=== PATIENT | female | born 2000 | race Two or more races ===

== ENCOUNTER 2025-05-20 08:42 | Outpatient (AMB) | payer MEDICAID, SELFPAY ==
--- NOTE | 2025-05-20 08:47 | OBCLNT_ITS ---
Vital Signs 05/20/25 08:49 Height 1.57 m Height Method Stated Weight 62.596 kg Weight Measurement Method Standing Scale BMI 25.2 BP 121/80 Blood Pressure Source Automatic Cuff Blood Pressure Location Left Upper Arm Position Sitting Respiration 16 Pulse 89 Pulse Source Monitor Temp 97.8 F Temp Source Oral Pulse Oximetry (%) 96 Oxygen Delivery Method Room Air Allergies/Home Meds Allergies & Medications Allergies NKA Allergy (Unknown, Uncoded 05/20/25 08:52) Medication Reconciliation doxylamine 10 mg-pyridoxine (vit B6) 10 mg tablet,delayed release (Diclegis) 1 tab PO BID 30 days #60 tabs 05/20/25 [Rx] Intake Visit Data Collection New Patient or Established: New Patient (never been to [facility]) Reason for Visit:: INITIAL CARE Seen by Clinical Staff ONLY (RN/MA): No Tobacco Weigher Required: No Do You Feel Safe at Home: Yes Authorities Contacted: N/A PCP or OBGYN visit in last 3 months: Yes Hx Now: Yes Are you currently on any form of Control: No Last menstrual period: 01/27/25 Pain Present Currently: No Pain Scale Used: Montes-Canela/Numerical Pain scale:: 0 Smoking Status Smoking Status: Never smoker Questionnaires Covid-19 Vaccine Questionnaire Has patient been vacinated for Covid-19 Have you been vacinated for Covid-19: No PHQ-9 PHQ-2 Over the last 2 weeks, how often have you been bothered by any of the following problems? 1. Little interest or pleasure in doing things: not at all 2. Feeling down, depressed, or hopeless: not at all Total score: 0 PHQ-9 3. Trouble falling or staying asleep, or sleeping too much: Not at all 4. Feeling tired or having little energy: Not at all 5. Poor appetite or overeating: Not at all 6. Feeling bad about yourself - or that you are a failure or have let yourself or your family down: Not at all 7. Trouble concentrating on things, such as reading the newspaper or watching television: Not at all 8. Moving or speaking so slowly that other people could have noticed? - Or the opposite - being so fidgety or restless that you have been moving around a lot more than usual: not at all 9. Thoughts that you would be better off or of hurting yourself in some way: Not at all Total score: 0 Source: Developed by Drs. Saud Griffin, Yusra Quintanilla, Ashish Parr and colleagues, with an educational muna from [email or web address] Depression screen completed yes Social History Living Situation History Lives With: Family Housing: House Tobacco History Smoking Status: Never smoker Second Hand Smoke Exposure: No Alcohol History Alcohol Intake: Former Alcohol Intake Frequency: holidays/special occasions only Domestic Abuse History Do You Feel Safe at Home: Yes History of Present Illness HPI Narrative 24-year-old 1 para 0 at transfer of care from [facility]. Her first appointment for OB care today. Patient has poor dates. She thinks her last period February 24, 2025. This would give EDC of November 11 D 2025. Patient is complaining of cough and cold. She went to [place] was seen and told to wait until she saw me. Denies a fever cough is not productive. Patient denies social habits. She denies surgery. She denies chronic illness. She would like medication for her nausea. Patient is A+, antibody screen negative, RPR nonreactive, rubella nonimmune, hepatitis B-, hep C negative, HIV negative, GC and Chlamydia were negative. And cystic fibrosis screen was negative. OB Initial Visit OB Flowsheet OB Flowsheet Initial Weight: Not Recorded Date -?-?-?-?-?-?-?-?-?-?-?-?- EGA Weight BP Alb Glu CTX Pres Fundal ht FHR Mov Dilation Station Effacement Hx Notes Visit Note 05/20/25 -?-?-?-?-?-?-?-?-?-?-?-?- 12w 1d 62.596 kg 121/80 absent unknown 12 145 absent 24-year-old 1 para 0 for transfer care from [facility] with records. Patient has poor dates. Her last period she thinks was February 24, 2025. And this gives a due date of December 01, 2024. Denies movement. Denies leaking, bleeding, contractions. Patient would like something for her nausea. Diclegis twice daily for nausea. Discussed comfort measures. We discussed diet and weight gain. We reviewed dates based on in office ultrasound. So NIPT and SMA was drawn today. Patient will need cystic fibrosis screen at next visit. I scheduled anatomy scan with Dr. Velasquez. And we discussed comfort measures for cough and cold and danger signs and follow-up should she develop a temp or worsen. Return in 4 weeks OB check Menstrual History Menstrual reliability: definite Flow: normal Menstrual regularity: regular Monthly: Yes Age at menarche: 9 On control pills at conception: No Associated symptoms (LMP): Reports nausea, vomiting, fatigue, breast tenderness and bloating OB History : 1 Hx Total # of Abortions (Spontaneous & Elective): 1 Infection History & Risk Evaluation History of STDs: none Genetic Screening & History Genetic Screening/Teratology Counseling - Includes patient, baby's father, or anyone in either family with: 1. Patient's age 35 years or older as of estimated date of delivery: No 2. Thalassemia (Guinean, Djiboutian, Mediterranean, or Background); MCV less than 80: No 3. Neural Tube Defect (Meningomyelocele, Spina Bifida, or Anencephaly): No 4. Congenital Heart Defect: No 5. Down Syndrome: No 6. Arvind-Sachs (Ashkenazi Moravian, Cajun, Slovenian [place]): No 7. Ben Disease (Ashkenazi Moravian): No 8. Familial Dysautonomia (Ashkenazi Moravian): No 9. Sickle Cell Disease or Trait (): No 10. Hemophilia or other blood disorders: No 11. Muscular Dystrophy: No 12. Cystic Fibrosis: No 13. Kiesha's Chorea: No 14. Mental Retardation/Autism: No 15. Other inherited genetic or chromosomal disorder: No 16. Maternal Metabolic Disorder (EG,TYPE 1 Diabetes, PKU): No 17. Patient or baby's father had a child with defects not listed above: No 18. Recurrent loss or a stillbirth: No 19. Medications (including supplements, vitamins, herbs or otc drugs)/illicit/recreational drugs/alcohol since last menstrual period: No 20. Any other: No Infection History 1. Live with someone with TB or exposed to TB: No 2. Rash or viral illness since last menstrual period: No 3. Hepatitis B,C: No Other (see comments) Source: [employer] Review of Systems Review of Systems Systems Reviewed: All systems reviewed, normal except as documented Constitutional Constitutional: Reports fatigue Gastrointestinal Gastrointestinal: Reports bloating, Reports nausea and Reports vomiting Endocrine Endocrine: Reports fatigue Exam General Limitations: no limitations General Appearance: alert, in no apparent distress, comfortable, cooperative, healthy appearing, well developed and well groomed Head Head exam: atraumatic, normocephalic and normal inspection Chest Chest inspection: Present normal inspection and symmetric chest wall rise Resp Respiratory exam: Present normal lung sounds bilaterally Card Cardiovascular exam: Present regular rate, normal rhythm and normal heart sounds Abdominal Abdominal exam: Present soft and normal bowel sounds Psych Psychiatric exam: Present normal affect and normal mood Office Procedures OBC Clinic LOC & Office Proc's Nursing/Assessment Patient Status: Initial/New Patient OB Clinic Nursing Assessment: Medication Reconciliation, Update PMH in EMR and Vital Signs OB Clinic Coordination of Care: Complex Care and Chronic Disease 1-5, Consent,records obtained, informed consent, Education Simp Pt/Fam, Lab and Imaging orders, Results/Orders obtained and Staff clarify orders Special Needs: Heart tones New Patient Charge New Patient Point Assignment: [id number] New Patient Point Charge: MEAT AND SEAFOOD CLERK Level 4 ([id number]) Assessment & Plan Diagnosis / Problem List (1) Encounter for supervision of high risk in first trimester, antepartum: Status: Acute Plan NIPT and SMA today. aFP next visit. Schedule with Dr. Velasquez for anatomy scan. Discussed comfort measures for cold and cough. And also danger signs symptoms and ER precautions. And return in 4 weeks for OB Additional Plan Follow Up: 4 Weeks (obc)
[2025-05-20 08:49] VITALS: BP 121/80; PULSE 89; RESP 16; TEMP 36.6; O2SAT 96; BMI 25.2
== END 2025-05-20 09:34 | disposition home or self-care (01) ==
PROVIDERS: Supervising Provider Advanced Practice Midwife; Visit Provider Advanced Practice Midwife
DX: O09.891 Supervision of other high risk pregnancies, first trimester (principal); O99.891 Other specified diseases and conditions complicating pregnancy; R05.9 Cough, unspecified; Z3A.12 12 weeks gestation of pregnancy
CPT/HCPCS: 99204; G0463

== ENCOUNTER 2025-06-17 08:29 | Outpatient (AMB) | payer MEDICAID, SELFPAY ==
--- NOTE | 2025-06-17 08:34 | AMB.OBVISIT ---
Vital Signs 06/17/25 08:35 Height 1.57 m Height Method Stated Weight 65.941 kg Weight Measurement Method Standing Scale BMI 26.7 BP 124/82 Blood Pressure Source Automatic Cuff Blood Pressure Location Right Upper Arm Position Sitting Respiration 18 Pulse 97 Pulse Source Monitor Temp 97.9 F Temp Source Temporal Artery Scan Pulse Oximetry (%) 97 Oxygen Delivery Method Room Air Allergies/Home Meds Allergies & Medications Allergies NKA Allergy (Unknown, Uncoded 06/17/25 08:39) Medication Reconciliation doxylamine 10 mg-pyridoxine (vit B6) 10 mg tablet,delayed release (Diclegis) 1 tab PO BID 30 days #60 tabs 05/20/25 [Rx Confirmed 06/17/25] Intake Visit Data Collection New Patient or Established: Established Patient (seen at [facility] within 3 years) Reason for Visit:: OBC Seen by Clinical Staff ONLY (RN/MA): No Data Security Consultant Required: No Do You Feel Safe at Home: Yes Authorities Contacted: N/A PCP or OBGYN visit in last 3 months: Yes Date of Last PCP or OBGYN visit: 05/20/25 Hx Now: Yes Are you currently on any form of Control: No Pain Present Currently: No Pain Scale Used: Montes-Canela/Numerical Pain scale:: 0 Smoking Status Smoking Status: Never smoker Immunizations Flu Vaccine in the Last 12 Months: No Flu Vaccine Exclusion Criteria: No Exclusion Criteria Questionnaires Covid-19 Vaccine Questionnaire Has patient been vacinated for Covid-19 Have you been vacinated for Covid-19: No PHQ-9 PHQ-2 Over the last 2 weeks, how often have you been bothered by any of the following problems? 1. Little interest or pleasure in doing things: not at all 2. Feeling down, depressed, or hopeless: not at all Total score: 0 PHQ-9 3. Trouble falling or staying asleep, or sleeping too much: Not at all 4. Feeling tired or having little energy: Not at all 5. Poor appetite or overeating: Not at all 6. Feeling bad about yourself - or that you are a failure or have let yourself or your family down: Not at all 7. Trouble concentrating on things, such as reading the newspaper or watching television: Not at all 8. Moving or speaking so slowly that other people could have noticed? - Or the opposite - being so fidgety or restless that you have been moving around a lot more than usual: not at all 9. Thoughts that you would be better off or of hurting yourself in some way: Not at all Total score: 0 If you checked off any problems, how difficult have these problems made it for you to do your work, take care of things at home, or get along with other people?: not difficult at all Source: Developed by Drs. Saud Griffin, Yusra Quintanilla, Ashish Parr and colleagues, with an educational muna from [employer]. Depression screen completed yes Social History Living Situation History Marital Status: Life Partner Lives With: Family Housing: House Tobacco History Smoking Status: Never smoker Second Hand Smoke Exposure: No Alcohol History Alcohol Intake: Former Alcohol Intake Frequency: holidays/special occasions only Domestic Abuse History Do You Feel Safe at Home: Yes Care OB Visit Log OB Flowsheet Initial Weight: Not Recorded Date <del>?</del> EGA Weight BP Alb Glu CTX Pres Fundal ht FHR Mov Dilation Station Effacement Hx Notes Visit Note 05/20/25 <del>?</del> 12w 1d 62.596 kg 121/80 absent unknown 12 145 absent 24-year-old 1 para 0 for transfer care from [facility] with records. Patient has poor dates. Her last period she thinks was February 24, 2025. And this gives a due date of December 01, 2024. Denies movement. Denies leaking, bleeding, contractions. Patient would like something for her nausea. Diclegis twice daily for nausea. Discussed comfort measures. We discussed diet and weight gain. We reviewed dates based on in office ultrasound. So NIPT and SMA was drawn today. Patient will need cystic fibrosis screen at next visit. I scheduled anatomy scan with Dr. Velasquez. And we discussed comfort measures for cough and cold and danger signs and follow-up should she develop a temp or worsen. Return in 4 weeks OB check 06/17/25 <del>?</del> 16w 1d 65.941 kg 124/82 absent unknown 15 135 absent No OB complaints. Doing well. Denies leaking, bleeding, contractions. Maternal- medicine sono pending. Discussed NIPT results. aFP today. Continue prenatals. Return in 4 weeks OB HERMILO Calculator Estimated Delivery Date Method Current WG Current Estimate 12/01/25 LMP (Uncertain) 16w 1d Notes Visit Date: 06/17/25 Last Updated by: Rona Kim CNM NIPT/carrier screen- Visit Date: 05/20/25 Last Updated by: Rona Kim CNM OB panel: A+,abs-, rpr;;nr, rub NON imm, hbsag-,hiv-, GC/CT-, UA clear, CRF-, HC- Office Procedures OBC Clinic LOC & Office Proc's Nursing/Assessment Patient Status: Established Patient OB Clinic Nursing Assessment: Medication Reconciliation, Update PMH in EMR and Vital Signs OB Clinic Coordination of Care: Complex Care and Chronic Disease 1-5, Education Complex Pt/Fam, Consent,records obtained, informed consent, Lab and Imaging orders, Results/Orders obtained and Staff clarify orders Special Needs: Heart tones Established Patient Charge Established Patient Point Assignment: 140 Established Patient Point Charge: EP Level 4 (120-155) Assessment & Plan Diagnosis / Problem List (1) Encounter for supervision of high risk in second trimester, antepartum: Status: Acute Plan aFP today. Discussed NIPT results. Follow-up on maternal- medicine ultrasound. Discussed SAB precautions. 24 weeks OB check Additional Plan Follow Up: 4 Weeks (obc)
[2025-06-17 08:35] VITALS: BP 124/82; PULSE 97; RESP 18; TEMP 36.6; O2SAT 97; BMI 26.7
== END 2025-06-17 09:31 | disposition home or self-care (01) ==
LOC: HODSOBC 08:29
PROVIDERS: Supervising Provider Advanced Practice Midwife; Visit Provider Advanced Practice Midwife
DX: O09.892 Supervision of other high risk pregnancies, second trimester (principal); Z3A.16 16 weeks gestation of pregnancy
CPT/HCPCS: 99214; G0463

== ENCOUNTER 2025-07-15 08:57 | Outpatient (AMB) | payer MEDICAID, SELFPAY ==
[2025-07-15 09:15] VITALS: BP 124/84; PULSE 90; RESP 18; TEMP 36.7; O2SAT 98; BMI 27.6
--- NOTE | 2025-07-15 09:15 | OBCLNT_ITS ---
Vital Signs 07/15/25 09:15 Height 1.57 m Height Method Stated Weight 68.209 kg Weight Measurement Method Standing Scale BMI 27.6 BP 124/84 Blood Pressure Source Automatic Cuff Blood Pressure Location Left Upper Arm Position Sitting Respiration 18 Pulse 90 Pulse Source Monitor Temp 98.1 F Temp Source Oral Pulse Oximetry (%) 98 Oxygen Delivery Method Room Air Allergies/Home Meds Allergies & Medications Allergies NKA Allergy (Unknown, Uncoded 07/15/25 09:16) Medication Reconciliation doxylamine 10 mg-pyridoxine (vit B6) 10 mg tablet,delayed release (Diclegis) 1 tab PO BID 30 days #60 tabs 05/20/25 [Rx Confirmed 07/15/25] famotidine 20 mg tablet (Pepcid) 20 mg PO BID #60 tabs 07/15/25 [Rx] ondansetron HCl 8 mg tablet 8 mg PO Q8H #30 tabs 07/15/25 [Rx] vits no.130-ferrous fum 27 mg iron-folic acid 800 mcg tablet ( Vitamin) 1 tab PO DAILY #60 tabs 07/15/25 [Rx] pyridoxine (vitamin B6) 50 mg tablet 50 mg PO BID #60 tabs 07/15/25 [Rx] Immunizations Immunizations Flu Vaccine in the Last 12 Months: No Flu Vaccine Exclusion Criteria: Refused by Patient Care OB Visit Log OB Flowsheet Initial Weight: Not Recorded Date -?-?-?-?-?-?-?-?-?-?-?-?- EGA Weight BP Alb Glu CTX Pres Fundal ht FHR Mov Dilation Station Effacement Hx Notes Visit Note 05/20/25 -?-?-?-?-?-?-?-?-?-?-?-?- 12w 1d 62.596 kg 121/80 absent unknown 12 145 absent 24-year-old 1 para 0 for transfer care from [facility] with records. Patient has poor dates. Her last period she thinks was February 24, 2025. And this gives a due date of December 01, 2024. Denies movement. Denies leaking, bleeding, contractions. Patient would like something for her nausea. Diclegis twice daily for nausea. Discussed comfort measures. We discussed diet and weight gain. We reviewed dates based on in office ultrasound. So NIPT and SMA was drawn today. Patient will need cystic fibrosis screen at next visit. I scheduled anatomy scan with Dr. Velasquez. And we discussed comfort measures for cough and cold and danger signs and follow-up should she develop a temp or worsen. Return in 4 weeks OB check 06/17/25 -?-?-?-?-?-?-?-?-?-?-?-?- 16w 1d 65.941 kg 124/82 absent unknown 15 135 absent No OB complaints. Doing well. Denies leaking, bleeding, contractions. Maternal- medicine sono pending. Discussed NIPT results. aFP today. Continue prenatals. Return in 4 weeks OB 07/15/25 -?-?-?-?-?-?-?-?-?-?-?--?- 20w 1d 68.209 kg 124/84 absent unknown 20 145 active Reports good movement. Denies leaking, bleeding and contractions. Increased nausea and vomiting. Patient was seen at [facility] and treated with IV fluids and discharged. Follow-up with Mayo Velasquez for ultrasound. Discussed comfort measures for nausea and vomiting. Zofran 8 mg every 8 hours as needed for nausea. And refill vitamins. And will to Pepcid 20 mg for indigestion or Tums and comfort measures for that labor precautions return for weeks OB check Follow-up with Dr. Velasquez f or ultrasound. Discussed comfort measures for nausea and vomiting. Zofran 8 mg every 8 hours as needed for nausea. And refill vitamins. And will to Pepcid 20 mg for indigestion or Tums and comfort measures for that labor precautions return for weeks OB check. HERMILO Calculator Estimated Delivery Date Method Current WG Current Estimate 12/01/25 LMP (Uncertain) 20w 1d Notes Visit Date: 06/17/25 Last Updated by: Rona Kim CNM NIPT/carrier screen- Visit Date: 05/20/25 Last Updated by: Rona Kim CNM OB panel: A+,abs-, rpr;;nr, rub NON imm, hbsag-,hiv-, GC/CT-, UA clear, CRF-, HC- Office Procedures OBC Clinic LOC & Office Proc's Nursing/Assessment Patient Status: Established Patient OB Clinic Nursing Assessment: Medication Reconciliation, Update PMH in EMR and Vital Signs OB Clinic Coordination of Care: Complex Care and Chronic Disease 1-5, Consent,records obtained, informed consent, Education Simp Pt/Fam, 1 Ins Authorization, Lab and Imaging orders, Results/Orders obtained and Staff clarify orders Special Needs: Heart tones Established Patient Charge Established Patient Point Assignment: 150 Established Patient Point Charge: EP Level 4 (120-155) Assessment & Plan Diagnosis / Problem List (1) Encounter for supervision of high risk in second trimester, antepartum: Status: Acute Plan Discussed comfort measures for nausea and vomiting. Increase fluids. I gave patient Zofran 8 mg p.o. every 8 hours as needed for nausea along with vitamin B6 50 mg p.o. twice daily. Refilled prenatals. And Pepcid 20 mg once daily as needed for heartburn. We discussed comfort measures for those items. Maternal- medicine sono is pending. aFP today return in 4 weeks OB check Additional Plan Follow Up: 4 Weeks (obc)
== END 2025-07-15 09:53 | disposition home or self-care (01) ==
PROVIDERS: Supervising Provider Advanced Practice Midwife; Visit Provider Advanced Practice Midwife
DX: O09.892 Supervision of other high risk pregnancies, second trimester (principal); O21.2 Late vomiting of pregnancy; Z3A.20 20 weeks gestation of pregnancy; Z28.21 Immunization not carried out because of patient refusal
CPT/HCPCS: 99214; G0463